=== PATIENT | female | born 1945 | race Caucasian/White ===

== ENCOUNTER 2016-10-12 16:47 | Inpatient (IN) | payer OTHER, BC ==
[~2016-10-12] VITALS: Ht 152.4 cm; Wt 148.0 kg
[~2016-10-12 16:47] MED LIST: ADULT LOW DOSE81 M1 PO; ATORVASTATIN CA10 MG PO; CARDURA2 M1 PO; DIOVAN160 MG PO; ELIQUIS5 MG PO; LO-DOSE ASPIRIN81 M1 PO; METOPROLOL SUC100 MG PO; METRONIDAZOLE500 MG PO; SANTYL30 GM TP; TOPROL XL50 MG PO; VALSARTAN320 MG PO; VOLTAREN75 MG PO; ZOLOFT100 MG PO
[2016-10-12] MEDS ORDERED: DIOVAN320 MG PO (17:10)
[2016-10-12] MEDS ORDERED: METOPROLOL SUC100 MG PO (17:11)
[2016-10-12] MEDS ORDERED: CHROMIUM PIC1000 MCG PO (17:13)
[2016-10-12 17:57] LABS: HEMATOCRIT 44.2 % (36.0-46.0); MCH 26.6 PG (29.0-34.0); MCHC 31.7 G/DL (30.0-36.0); MCV 83.9 FL (83-99); MEAN PLAT.VOLUME 9.9 uM^3 (9.5-12.4); NRBC (%) 0.5 /100 WBC (0-0); PLATELET COUNT 204 K/uL (156-360); RBC DIS.WIDTH-CV 14.9 % (11.8-14.6); RBC DIS.WIDTH-SD 45.4 % (39-53); RED BLOOD COUNT 5.27 M/uL (3.80-5.20); WHITE BLOOD COUNT 6.4 K/uL (4.1-10.2)
[2016-10-12 18:06] LABS: CHLORIDE 105 mEq/L (99-109); POTASSIUM 3.6 mEq/L (3.7-5.4); SODIUM 141 mEq/L (136-147)
[2016-10-12 18:08] LABS: GLUCOSE 100 mg/dL (70-99)
[2016-10-12 18:09] LABS: ANION GAP 12 MEQ/L (2-14)
[2016-10-12 18:11] LABS: GFR ESTIMATE (CALCULATED) 58 mL/min/; TOTAL BILIRUBIN 1.1 mg/dL (0.0-1.0)
[2016-10-12 18:12] LABS: ALKALINE PHOSPHATASE 129 IU/L (3-129); UREA NITROGEN (BUN) 15 mg/dL (9-23)
[2016-10-12 18:14] LABS: DIRECT BILIRUBIN 0.5 mg/dL (0.0-0.3)
[2016-10-12 18:15] LABS: LIPASE 30 U/L (1.0-51.0)
[2016-10-12 21:12] LABS: ADD MIUA? YES; BILIRUBIN NEGATIVE; BLOOD LARGE; COLOR YELLOW ((YELLOW)); GLUCOSE (STRIP) NEGATIVE; KETONES NEGATIVE; LEUKOCYTES SMALL; NITRITE NEGATIVE; PROTEIN (STRIP) 30; SPECIFIC GRAVITY 1.012 (1.000-1.030); UROBILINOGEN 0.2 MG/DL (0.2-1.0)
[2016-10-12 21:44] LABS: BACTERIA RARE /HPF; EPITHELIAL CELLS RARE /HPF; MUCUS TRACE /LPF; RED BLOOD CELLS TNTC /HPF (0-5); UCUL ADDED? NO; WHITE BLOOD CELLS 20-30 /HPF (0-5); WHITE BLOOD CELLS CLUMP OCC /HPF (0-5)
[2016-10-12 22:12] LABS: CRYSTALS PRESENT
[2016-10-13 03:39] VITALS: BP 95/51
[2016-10-13 07:26] LABS: ANION GAP 11 MEQ/L (2-14); CHLORIDE 105 MEQ/L (99-109); GFR ESTIMATE (CALCULATED) 47 mL/min/; GLUCOSE 114 mg/dL (70-99); HEMATOCRIT 36.3 % (36.0-46.0); MCH 26.5 PG (29.0-34.0); MCHC 31.1 G/DL (30.0-36.0); MCV 85.2 FL (83-99); MEAN PLAT.VOLUME 10.4 uM^3 (9.5-12.4); PLATELET COUNT 146 K/uL (156-360); POTASSIUM 3.4 MEQ/L (3.7-5.4); RBC DIS.WIDTH-CV 15.7 % (11.8-14.6); RBC DIS.WIDTH-SD 48.5 % (39-53); RED BLOOD COUNT 4.26 M/uL (3.80-5.20); SAMPLE HEMOLYSIS CHECK 0; SAMPLE ICTERIC CHECK 0; SAMPLE LIPEMIA CHECK 0; SODIUM 137 MEQ/L (136-147); UREA NITROGEN (BUN) 19 mg/dL (9-23)
[2016-10-13 07:40] LABS: WHITE BLOOD COUNT 33.9 K/uL (4.1-10.2)
[2016-10-13 07:56] LABS: ABS NEUTROPHIL COUNT 31.8; ATYPICAL LYMPHOCYTE 1.3 %; BAND NEUTROPHILS 23.5 % (0-8.0); BASOPHILS 0.5 %; EOSINOPHIL ABS CT 0; INSTRUMENT ABS NEUTROPHIL CT 30.2 K/uL; MYELOCYTES 0.4 %; PLAT.SUFFICIENCY ADEQUATE; SEG.NEUTROPHILS 70.4 % (46.0-76.0)
[2016-10-13 07:58] VITALS: BP 107/55
[2016-10-13 10:11] VITALS: BP 102/61
[2016-10-13 12:00] VITALS: BP 109/55
[2016-10-13 15:30] LABS: C DIFF TOXIN POSITIVE (NEGATIVE)
[2016-10-13 15:37] LABS: PROBE CHECK PASS
[2016-10-13 16:03] VITALS: BP 108/64
[2016-10-13 20:00] VITALS: BP 139/73
[2016-10-14] VITALS (7 sets, daily range): BP systolic 110–177; BP diastolic 68–73
[2016-10-14 07:28] LABS: HEMATOCRIT 35.2 % (36.0-46.0); MCHC 32.4 G/DL (30.0-36.0); MCV 83.2 FL (83-99); RBC DIS.WIDTH-CV 15.8 % (11.8-14.6); RED BLOOD COUNT 4.23 M/uL (3.80-5.20)
[2016-10-14 07:35] LABS: WHITE BLOOD COUNT 19.5 K/uL (4.1-10.2)
[2016-10-14 07:45] LABS: ANION GAP 10 MEQ/L (2-14); CHLORIDE 107 MEQ/L (99-109); GFR ESTIMATE (CALCULATED) 47 mL/min/; GLUCOSE 103 mg/dL (70-99); POTASSIUM 3.7 MEQ/L (3.7-5.4); SAMPLE HEMOLYSIS CHECK 0; SAMPLE ICTERIC CHECK 0; SAMPLE LIPEMIA CHECK 0; SODIUM 136 MEQ/L (136-147); UREA NITROGEN (BUN) 21 mg/dL (9-23)
[2016-10-14 09:38] LABS: EOSINOPHIL (%) 0.1 % (0-5); IMMATURE GRANULOCYTE (%) 2.8 % (0.0-0.7); IMMATURE GRANULOCYTE COUNT 0.5 K/uL; LYMPHOCYTE COUNT 0.3 K/uL (1.0-2.8); MEAN PLAT.VOLUME 10.1 uM^3 (9.5-12.4); MONOCYTE (%) 8.2 % (3-12); MONOCYTE COUNT 1.6 K/uL (0-0.8); NEUTROPHIL (%) 87.2 % (45-76); PLATELET COUNT 109 K/uL (156-360)
[2016-10-15 00:20] VITALS: BP 130/70
[2016-10-15 03:53] VITALS: BP 133/71
[2016-10-15 07:58] LABS: EOSINOPHIL (%) 0.3 % (0-5); HEMATOCRIT 35.4 % (36.0-46.0); IMMATURE GRANULOCYTE (%) 2.6 % (0.0-0.7); IMMATURE GRANULOCYTE COUNT 0.4 K/uL; INSTRUMENT ABS NEUTROPHIL CT 13.5 K/uL; LYMPHOCYTE COUNT 0.5 K/uL (1.0-2.8); MCH 26.6 PG (29.0-34.0); MCHC 31.4 G/DL (30.0-36.0); MCV 84.7 FL (83-99); MEAN PLAT.VOLUME 11.2 uM^3 (9.5-12.4); MONOCYTE COUNT 1.1 K/uL (0-0.8); NEUTROPHIL (%) 86.6 % (45-76); NEUTROPHIL COUNT 13.5 K/uL (1.8-6.4); PLATELET COUNT 84 K/uL (156-360); RBC DIS.WIDTH-CV 15.9 % (11.8-14.6); RBC DIS.WIDTH-SD 50.1 % (39-53); RED BLOOD COUNT 4.18 M/uL (3.80-5.20); WHITE BLOOD COUNT 15.5 K/uL (4.1-10.2)
[2016-10-15 08:31] LABS: ANION GAP 12 MEQ/L (2-14); CHLORIDE 111 MEQ/L (99-109); GFR ESTIMATE (CALCULATED) 47 mL/min/; GLUCOSE 110 mg/dL (70-99); POTASSIUM 4.2 MEQ/L (3.7-5.4); SAMPLE HEMOLYSIS CHECK 0; SAMPLE ICTERIC CHECK 0; SAMPLE LIPEMIA CHECK 0; SODIUM 140 MEQ/L (136-147); UREA NITROGEN (BUN) 20 mg/dL (9-23)
[2016-10-15 09:07] VITALS: BP 139/88
[2016-10-15 11:30] VITALS: BP 142/84
[2016-10-15 15:55] VITALS: BP 140/74
[2016-10-15 20:00] VITALS: BP 180/84
[2016-10-16] VITALS: BP 158/82
[2016-10-16 04:00] VITALS: BP 142/78
[2016-10-16 07:42] LABS: BASOPHIL COUNT 0.1 K/uL (0-0.1); EOSINOPHIL (%) 0.6 % (0-5); EOSINOPHIL COUNT 0.1 K/uL (0-0.3); HEMATOCRIT 33.2 % (36.0-46.0); IMMATURE GRANULOCYTE (%) 1.7 % (0.0-0.7); IMMATURE GRANULOCYTE COUNT 0.3 K/uL; INSTRUMENT ABS NEUTROPHIL CT 12.6 K/uL; LYMPHOCYTE COUNT 0.7 K/uL (1.0-2.8); MCH 26.9 PG (29.0-34.0); MCHC 33.4 G/DL (30.0-36.0); MEAN PLAT.VOLUME 10.6 uM^3 (9.5-12.4); MONOCYTE COUNT 1.9 K/uL (0-0.8); NEUTROPHIL (%) 80.7 % (45-76); NEUTROPHIL COUNT 12.6 K/uL (1.8-6.4); RBC DIS.WIDTH-CV 15.5 % (11.8-14.6); RED BLOOD COUNT 4.12 M/uL (3.80-5.20); WHITE BLOOD COUNT 15.6 K/uL (4.1-10.2)
[2016-10-16 07:43] LABS: MCV 80.6 FL (83-99); PLATELET COUNT 129 K/uL (156-360)
[2016-10-16 07:58] LABS: ANION GAP 10 MEQ/L (2-14); CHLORIDE 102 MEQ/L (99-109); GFR ESTIMATE (CALCULATED) > 59 mL/min/; GLUCOSE 116 mg/dL (70-99); SAMPLE HEMOLYSIS CHECK 0; SAMPLE ICTERIC CHECK 0; SAMPLE LIPEMIA CHECK 0; SODIUM 137 MEQ/L (136-147); UREA NITROGEN (BUN) 12 mg/dL (9-23)
[2016-10-16 08:12] VITALS: BP 163/79
[2016-10-16 11:03] VITALS: BP 162/78
[2016-10-16 15:53] VITALS: BP 166/80
[2016-10-16 19:57] VITALS: BP 146/70
[2016-10-17] VITALS: BP 134/76
[2016-10-17 03:45] VITALS: BP 155/72
[2016-10-17 07:31] VITALS: BP 146/72
[2016-10-17 07:35] LABS: BASOPHIL COUNT 0.1 K/uL (0-0.1); EOSINOPHIL (%) 1.2 % (0-5); EOSINOPHIL COUNT 0.2 K/uL (0-0.3); HEMATOCRIT 34.2 % (36.0-46.0); IMMATURE GRANULOCYTE (%) 4.9 % (0.0-0.7); IMMATURE GRANULOCYTE COUNT 0.7 K/uL; INSTRUMENT ABS NEUTROPHIL CT 10.5 K/uL; MCH 26.1 PG (29.0-34.0); MCHC 32.2 G/DL (30.0-36.0); MEAN PLAT.VOLUME 10.8 uM^3 (9.5-12.4); MONOCYTE (%) 14.2 % (3-12); MONOCYTE COUNT 2.1 K/uL (0-0.8); NEUTROPHIL COUNT 10.5 K/uL (1.8-6.4); PLATELET COUNT 156 K/uL (156-360); RBC DIS.WIDTH-CV 15.6 % (11.8-14.6); RBC DIS.WIDTH-SD 45.8 % (39-53); RED BLOOD COUNT 4.22 M/uL (3.80-5.20); WHITE BLOOD COUNT 14.6 K/uL (4.1-10.2)
[2016-10-17 07:57] LABS: ANION GAP 9 MEQ/L (2-14); CHLORIDE 101 MEQ/L (99-109); GFR ESTIMATE (CALCULATED) > 59 mL/min/; GLUCOSE 111 mg/dL (70-99); POTASSIUM 2.8 MEQ/L (3.7-5.4); SAMPLE HEMOLYSIS CHECK 0; SAMPLE ICTERIC CHECK 0; SAMPLE LIPEMIA CHECK 0; SODIUM 140 MEQ/L (136-147); UREA NITROGEN (BUN) 10 mg/dL (9-23)
[2016-10-17 10:57] LABS: INFLUENZA A VIRAL ANTIGEN NEGATIVE; INFLUENZA B VIRAL ANTIGEN NEGATIVE
[2016-10-17 11:45] VITALS: BP 138/70
[2016-10-17 16:01] VITALS: BP 128/64
[2016-10-17 19:51] VITALS: BP 127/72
[2016-10-18] VITALS (7 sets, daily range): BP systolic 123–145; BP diastolic 65–78
[2016-10-18 07:16] LABS: HEMATOCRIT 34.4 % (36.0-46.0); MCH 26.2 PG (29.0-34.0); MCV 81.9 FL (83-99); PLATELET COUNT 179 K/uL (156-360); RBC DIS.WIDTH-CV 15.8 % (11.8-14.6); WHITE BLOOD COUNT 15.2 K/uL (4.1-10.2)
[2016-10-18 07:38] LABS: ANION GAP 9 MEQ/L (2-14); CHLORIDE 100 MEQ/L (99-109); GFR ESTIMATE (CALCULATED) > 59 mL/min/; GLUCOSE 120 mg/dL (70-99); SAMPLE HEMOLYSIS CHECK 0; SAMPLE ICTERIC CHECK 0; SAMPLE LIPEMIA CHECK 0; SODIUM 140 MEQ/L (136-147); UREA NITROGEN (BUN) 12 mg/dL (9-23)
[2016-10-18 08:44] LABS: ABS NEUTROPHIL COUNT 12.1; ATYPICAL LYMPHOCYTE 0.9 %; BASOPHILS 0.9 %; EOSINOPHIL ABS CT 0.4; EOSINOPHILS 2.6 % (0-5.0); INSTRUMENT ABS NEUTROPHIL CT 10.3 K/uL; LYMPHOCYTES 6.1 % (15.0-45.0); PLAT.SUFFICIENCY ADEQUATE; SEG.NEUTROPHILS 79.8 % (46.0-76.0); SMUDGE CELLS 1.8
[2016-10-19 03:33] VITALS: BP 140/75
[2016-10-19 07:07] LABS: HEMATOCRIT 35.1 % (36.0-46.0); MCH 26.6 PG (29.0-34.0); MCHC 32.5 G/DL (30.0-36.0); MEAN PLAT.VOLUME 10.9 uM^3 (9.5-12.4); PLATELET COUNT 218 K/uL (156-360); RBC DIS.WIDTH-CV 15.8 % (11.8-14.6); RBC DIS.WIDTH-SD 47.3 % (39-53); RED BLOOD COUNT 4.28 M/uL (3.80-5.20); WHITE BLOOD COUNT 13.6 K/uL (4.1-10.2)
[2016-10-19 07:27] LABS: ANION GAP 6 MEQ/L (2-14); CHLORIDE 102 MEQ/L (99-109); GFR ESTIMATE (CALCULATED) > 59 mL/min/; GLUCOSE 127 mg/dL (70-99); POTASSIUM 3.2 MEQ/L (3.7-5.4); SAMPLE HEMOLYSIS CHECK 0; SAMPLE ICTERIC CHECK 0; SAMPLE LIPEMIA CHECK 0; SODIUM 138 MEQ/L (136-147); UREA NITROGEN (BUN) 14 mg/dL (9-23)
[2016-10-19 07:51] VITALS: BP 141/74
[2016-10-19 07:51] LABS: ABS NEUTROPHIL COUNT 10.9; BASOPHILS 0.9 %; EOSINOPHIL ABS CT 0.1; EOSINOPHILS 0.9 % (0-5.0); INSTRUMENT ABS NEUTROPHIL CT 8.8 K/uL; LYMPHOCYTES 6.9 % (15.0-45.0); METAMYELOCYTES 1.7 %; NUCLEATED RBC'S 0.9; PLAT.SUFFICIENCY ADEQUATE; SEG.NEUTROPHILS 76.5 % (46.0-76.0)
[2016-10-19 08:53] LABS: BAND NEUTROPHILS 3.5 % (0-8.0)
[2016-10-19] MEDS ORDERED: ELIQUIS5 MG PO ×2 (11:54→11:55)
[2016-10-19 12:21] VITALS: BP 144/78
[2016-10-19 15:40] VITALS: BP 146/76
[2016-10-19 19:41] VITALS: BP 163/72
[2016-10-20] VITALS: BP 154/73
[2016-10-20 06:52] LABS: HEMATOCRIT 35.7 % (36.0-46.0); MCH 26.5 PG (29.0-34.0); MCHC 31.9 G/DL (30.0-36.0); MCV 82.8 FL (83-99); MEAN PLAT.VOLUME 10.7 uM^3 (9.5-12.4); PLATELET COUNT 244 K/uL (156-360); RBC DIS.WIDTH-CV 15.6 % (11.8-14.6); RBC DIS.WIDTH-SD 47.5 % (39-53); RED BLOOD COUNT 4.31 M/uL (3.80-5.20)
[2016-10-20 07:13] LABS: ANION GAP 9 MEQ/L (2-14); CHLORIDE 102 MEQ/L (99-109); GFR ESTIMATE (CALCULATED) > 59 mL/min/; GLUCOSE 106 mg/dL (70-99); POTASSIUM 3.5 MEQ/L (3.7-5.4); SAMPLE HEMOLYSIS CHECK 0; SAMPLE ICTERIC CHECK 0; SAMPLE LIPEMIA CHECK 0; SODIUM 142 MEQ/L (136-147); UREA NITROGEN (BUN) 15 mg/dL (9-23)
[2016-10-20 07:48] VITALS: BP 140/64
[2016-10-20 08:52] LABS: ABS NEUTROPHIL COUNT 11.1; ATYPICAL LYMPHOCYTE 0.9 %; BAND NEUTROPHILS 2.7 % (0-8.0); BASOPHILS 2.7 %; EOSINOPHIL ABS CT 0.1; EOSINOPHILS 0.9 % (0-5.0); INSTRUMENT ABS NEUTROPHIL CT 9.8 K/uL; LYMPHOCYTES 7.1 % (15.0-45.0); MYELOCYTES 3.6 %; PLAT.SUFFICIENCY ADEQUATE; SEG.NEUTROPHILS 76.8 % (46.0-76.0)
[2016-10-20 11:34] VITALS: BP 140/80
[2016-10-20 16:08] VITALS: BP 140/72
[2016-10-20 20:00] VITALS: BP 135/76
[2016-10-20 23:56] VITALS: BP 151/83
[2016-10-21 04:00] VITALS: BP 148/83
[2016-10-21 06:23] LABS: HEMATOCRIT 36.7 % (36.0-46.0); MCH 26.4 PG (29.0-34.0); MCHC 31.9 G/DL (30.0-36.0); MCV 82.8 FL (83-99); MEAN PLAT.VOLUME 10.9 uM^3 (9.5-12.4); PLATELET COUNT 271 K/uL (156-360); RBC DIS.WIDTH-CV 15.8 % (11.8-14.6); RBC DIS.WIDTH-SD 47.9 % (39-53); RED BLOOD COUNT 4.43 M/uL (3.80-5.20); WHITE BLOOD COUNT 15.5 K/uL (4.1-10.2)
[2016-10-21 06:47] LABS: ANION GAP 10 MEQ/L (2-14); CHLORIDE 102 MEQ/L (99-109); GFR ESTIMATE (CALCULATED) > 59 mL/min/; GLUCOSE 95 mg/dL (70-99); POTASSIUM 3.9 MEQ/L (3.7-5.4); SAMPLE HEMOLYSIS CHECK 0; SAMPLE ICTERIC CHECK 0; SAMPLE LIPEMIA CHECK 0; SODIUM 140 MEQ/L (136-147); UREA NITROGEN (BUN) 14 mg/dL (9-23)
[2016-10-21 07:32] LABS: ABS NEUTROPHIL COUNT 12.2; ANISOCYTOSIS 1+; ATYPICAL LYMPHOCYTE 3.4 %; BAND NEUTROPHILS 2.6 % (0-8.0); BASOPHILS 0.8 %; EOSINOPHIL ABS CT 0; INSTRUMENT ABS NEUTROPHIL CT 11.4 K/uL; LYMPHOCYTES 6.8 % (15.0-45.0); MYELOCYTES 2.6 %; PLAT.SUFFICIENCY ADEQUATE; SEG.NEUTROPHILS 76.1 % (46.0-76.0); SPHEROCYTES 1+
[2016-10-21 07:35] VITALS: BP 144/81
[2016-10-21] MEDS ORDERED: AMOXICILLIN500 MG PO (13:45)
[2016-10-21] MEDS ORDERED: GUAIFENESI100 MG/5 M PO (13:46)
[2016-10-21] MEDS ORDERED: PREDNISONE20 MG PO (13:47)
[2016-10-21] MEDS ORDERED: VANCOMYCIN HCL125 MG PO (13:50)
== END 2016-10-21 15:50 | disposition home health service (06) | DRG 871 ==
LOC: EME 16:47 → 5SOUTH 10-13 00:29 → EDOF 10-13 00:29 → 5SOUTH 10-13 02:28
PROVIDERS: Emergency Medicine; Family Medicine; Internal Medicine
DX: A41.9 Sepsis, unspecified organism (principal); J18.9 Pneumonia, unspecified organism; E87.2 Acidosis; Z68.44 Body mass index [BMI] 60.0-69.9, adult; A04.7 Enterocolitis due to Clostridium difficile; N30.00 Acute cystitis without hematuria; N20.1 Calculus of ureter; L97.229 Non-pressure chronic ulcer of left calf with unspecified severity; E87.6 Hypokalemia; I10 Essential (primary) hypertension; E78.5 Hyperlipidemia, unspecified; F41.9 Anxiety disorder, unspecified; F32.9 Major depressive disorder, single episode, unspecified; E66.01 Morbid (severe) obesity due to excess calories; I27.2 Other secondary pulmonary hypertension; I83.022 Varicose veins of left lower extremity with ulcer of calf; B96.4 Proteus (mirabilis) (morganii) as the cause of diseases classified elsewhere; E87.70 Fluid overload, unspecified
CPT/HCPCS: 70450; 71010; 71250; 74176; 80048; 80076; 81003; 83605; 83690; 85025; 85027; 87040; 87077; 87086; 87186; 87493; 87502; 87801; 93306; 94799; 99281; 99285; A6212; J0456; J0696; J1885; J1940; J2060; J2270; J2405; J3480; J7030; J7050; J7512; S0030

== ENCOUNTER 2017-01-06 04:47 | Inpatient (IN) | payer OTHER, BC ==
[~2017-01-06] VITALS: Ht 152.4 cm; Wt 151.4 kg
[~2017-01-06 04:47] MED LIST changes: +AMOXICILLIN500 MG PO; +CHROMIUM PIC1000 MCG PO; +DIOVAN320 MG PO; +GUAIFENESI100 MG/5 M PO; +PREDNISONE20 MG PO; +VANCOMYCIN HCL125 MG PO
[2017-01-06 05:38] LABS: BASOPHIL COUNT 0.1 K/uL (0-0.1); EOSINOPHIL (%) 0.2 % (0-5); HEMATOCRIT 38.8 % (36.0-46.0); IMMATURE GRANULOCYTE (%) 0.4 % (0.0-0.7); IMMATURE GRANULOCYTE COUNT 0.1 K/uL; INSTRUMENT ABS NEUTROPHIL CT 11.2 K/uL; MCH 27.1 PG (29.0-34.0); MCHC 32.7 G/DL (30.0-36.0); MCV 82.7 FL (83-99); MEAN PLAT.VOLUME 10.2 uM^3 (9.5-12.4); MONOCYTE (%) 10.3 % (3-12); MONOCYTE COUNT 1.4 K/uL (0-0.8); NEUTROPHIL (%) 81.4 % (45-76); NEUTROPHIL COUNT 11.2 K/uL (1.8-6.4); PLATELET COUNT 206 K/uL (156-360); RBC DIS.WIDTH-CV 14.6 % (11.8-14.6); RBC DIS.WIDTH-SD 43.8 % (39-53); RED BLOOD COUNT 4.69 M/uL (3.80-5.20); WHITE BLOOD COUNT 13.7 K/uL (4.1-10.2)
[2017-01-06 05:46] LABS: CHLORIDE 104 mEq/L (99-109); POTASSIUM 3.9 mEq/L (3.7-5.4); SODIUM 137 mEq/L (136-147)
[2017-01-06 05:47] LABS: GLUCOSE 125 mg/dL (70-99)
[2017-01-06 05:49] LABS: ANION GAP 10 MEQ/L (2-14)
[2017-01-06 05:51] LABS: GFR ESTIMATE (CALCULATED) > 59 mL/min/
[2017-01-06 05:52] LABS: UREA NITROGEN (BUN) 11 mg/dL (9-23)
[2017-01-06 06:01] LABS: TROP-I INTERPRETATION NEGATIVE; TROPONIN-I < 0.01 ng/mL (0.0-0.30)
[2017-01-06 06:52] LABS: D-DIMER ELISA 1.35 mg/L FEU (< 0.57)
[2017-01-06] MEDS ORDERED: MONTELUKAST SOD10 MG PO (08:42)
[2017-01-06 11:50] VITALS: BP 135/63
[2017-01-06 11:53] VITALS: BP 135/63
[2017-01-06 12:42] LABS: TROP-I INTERPRETATION NEGATIVE; TROPONIN-I < 0.01 ng/mL (0.0-0.30)
[2017-01-06 15:38] VITALS: BP 126/63
[2017-01-06 18:04] LABS: TROP-I INTERPRETATION NEGATIVE; TROPONIN-I 0.01 ng/mL (0.0-0.30)
[2017-01-06 20:24] VITALS: BP 123/56
[2017-01-07] VITALS (7 sets, daily range): BP systolic 138–177; BP diastolic 62–75
[2017-01-07 07:09] LABS: MCH 27.4 PG (29.0-34.0); MCHC 32.2 G/DL (30.0-36.0); MCV 85.1 FL (83-99); MEAN PLAT.VOLUME 10.5 uM^3 (9.5-12.4); PLATELET COUNT 178 K/uL (156-360); RBC DIS.WIDTH-CV 14.5 % (11.8-14.6); RBC DIS.WIDTH-SD 45.1 % (39-53); RED BLOOD COUNT 4.35 M/uL (3.80-5.20); WHITE BLOOD COUNT 8.2 K/uL (4.1-10.2)
[2017-01-07 07:33] LABS: ANION GAP 8 MEQ/L (2-14); CHLORIDE 106 MEQ/L (99-109); GFR ESTIMATE (CALCULATED) > 59 mL/min/; GLUCOSE 107 mg/dL (70-99); POTASSIUM 3.8 MEQ/L (3.7-5.4); SAMPLE HEMOLYSIS CHECK 0; SAMPLE ICTERIC CHECK 0; SAMPLE LIPEMIA CHECK 0; SODIUM 140 MEQ/L (136-147); UREA NITROGEN (BUN) 10 mg/dL (9-23)
[2017-01-07 07:38] LABS: INTER. NORMALIZED RATIO 1.1; PROTHROMBIN TIME 11.4 (9.2-11.2)
[2017-01-08 00:05] VITALS: BP 148/65
[2017-01-08 03:30] VITALS: BP 141/70
[2017-01-08 09:41] VITALS: BP 139/94
[2017-01-08 11:30] VITALS: BP 162/91
[2017-01-08 15:51] VITALS: BP 164/79
[2017-01-08 20:43] VITALS: BP 139/69
[2017-01-09] VITALS (7 sets, daily range): BP systolic 144–184; BP diastolic 65–97
[2017-01-10 00:01] VITALS: BP 158/74
[2017-01-10 07:41] VITALS: BP 166/78
[2017-01-10 09:01] LABS: HEMATOCRIT 40.7 % (36.0-46.0); MCH 26.7 PG (29.0-34.0); MCHC 31.9 G/DL (30.0-36.0); MCV 83.7 FL (83-99); MEAN PLAT.VOLUME 9.9 uM^3 (9.5-12.4); RBC DIS.WIDTH-CV 13.9 % (11.8-14.6); RBC DIS.WIDTH-SD 42.6 % (39-53); RED BLOOD COUNT 4.86 M/uL (3.80-5.20); WHITE BLOOD COUNT 7.8 K/uL (4.1-10.2)
[2017-01-10 09:12] LABS: ANION GAP 8 MEQ/L (2-14); CHLORIDE 103 MEQ/L (99-109); GFR ESTIMATE (CALCULATED) > 59 mL/min/; GLUCOSE 118 mg/dL (70-99); POTASSIUM 4.1 MEQ/L (3.7-5.4); SAMPLE HEMOLYSIS CHECK 0; SAMPLE ICTERIC CHECK 0; SAMPLE LIPEMIA CHECK 0; SODIUM 141 MEQ/L (136-147); UREA NITROGEN (BUN) 12 mg/dL (9-23)
[2017-01-10 11:38] LABS: PLATELET COUNT 232 K/uL (156-360)
[2017-01-10 13:38] VITALS: BP 173/71
[2017-01-10 16:11] VITALS: BP 140/63
[2017-01-10 20:00] VITALS: BP 154/65
[2017-01-10 20:55] LABS: C DIFF TOXIN NEGATIVE (NEGATIVE); PROBE CHECK PASS; SPECIMEN PROCESSING CONTROL PASS
[2017-01-10 23:45] VITALS: BP 166/79
[2017-01-11] VITALS (7 sets, daily range): BP systolic 104–183; BP diastolic 53–83
[2017-01-12 04:02] VITALS: BP 121/58
[2017-01-12 08:32] VITALS: BP 139/64
[2017-01-12 12:00] VITALS: BP 121/67
[2017-01-12 15:58] VITALS: BP 126/58
[2017-01-12] MEDS ORDERED: AUGMENTIN875 MG PO (16:51)
[2017-01-12] MEDS ORDERED: ACIDOPHILUS LA1 EACH PO (16:51)
[2017-01-12 23:53] VITALS: BP 119/56
[2017-01-13 07:53] VITALS: BP 144/52
[2017-01-13] MEDS ORDERED: PROCARDIA20 MG PO (08:41)
== END 2017-01-13 09:34 | disposition home or self-care (01) | DRG 871 ==
LOC: EME → EDBD 04:47 → 3EAST 09:04 → EDOF 09:04 → 3EAST 11:19
PROVIDERS: Emergency Medicine; Internal Medicine; Physician Assistant
DX: A40.9 Streptococcal sepsis, unspecified (principal); J18.9 Pneumonia, unspecified organism; I11.0 Hypertensive heart disease with heart failure; I50.30 Unspecified diastolic (congestive) heart failure; L03.116 Cellulitis of left lower limb; E78.5 Hyperlipidemia, unspecified; F32.9 Major depressive disorder, single episode, unspecified; I51.7 Cardiomegaly; I87.2 Venous insufficiency (chronic) (peripheral); Z68.44 Body mass index [BMI] 60.0-69.9, adult; Z79.01 Long term (current) use of anticoagulants; Z79.899 Other long term (current) drug therapy; Z82.49 Family history of ischemic heart disease and other diseases of the circulatory system; Z85.3 Personal history of malignant neoplasm of breast; Z86.711 Personal history of pulmonary embolism; Z86.718 Personal history of other venous thrombosis and embolism; Z88.2 Allergy status to sulfonamides; I89.0 Lymphedema, not elsewhere classified; E66.2 Morbid (severe) obesity with alveolar hypoventilation; E66.01 Morbid (severe) obesity due to excess calories
CPT/HCPCS: 71010; 71275; 80048; 83605; 83880; 84484; 85025; 85027; 85379; 85610; 85651; 87040; 87070; 87205; 87493; 87801; 93005; 93971; 94760; 94799; 97530 GO; 97530 GP; 99202; 99281; 99285; C1753; J0690; J1956; J2540; J7030; J7050

== ENCOUNTER 2017-03-20 07:12 | Emergency (ER) | payer OTHER, BC ==
[~2017-03-20] VITALS: Ht 152.4 cm; Wt 148.0 kg
[~2017-03-20 07:12] MED LIST changes: +ACIDOPHILUS LA1 EACH PO; +AUGMENTIN875 MG PO; +MONTELUKAST SOD10 MG PO; +PROCARDIA20 MG PO
[2017-03-20 08:02] LABS: BASOPHIL COUNT 0.1 K/uL (0-0.1); EOSINOPHIL (%) 1.5 % (0-5); EOSINOPHIL COUNT 0.2 K/uL (0-0.3); HEMATOCRIT 39.3 % (36.0-46.0); IMMATURE GRANULOCYTE (%) 0.5 % (0.0-0.7); IMMATURE GRANULOCYTE COUNT 0.1 K/uL; INSTRUMENT ABS NEUTROPHIL CT 7.4 K/uL; LYMPHOCYTE COUNT 1.3 K/uL (1.0-2.8); MCHC 31.8 G/DL (30.0-36.0); MCV 81.7 FL (83-99); MEAN PLAT.VOLUME 10.1 uM^3 (9.5-12.4); MONOCYTE (%) 13.7 % (3-12); MONOCYTE COUNT 1.4 K/uL (0-0.8); NEUTROPHIL (%) 71.3 % (45-76); NEUTROPHIL COUNT 7.4 K/uL (1.8-6.4); PLATELET COUNT 224 K/uL (156-360); RBC DIS.WIDTH-CV 14.9 % (11.8-14.6); RBC DIS.WIDTH-SD 45.1 % (39-53); RED BLOOD COUNT 4.81 M/uL (3.80-5.20); WHITE BLOOD COUNT 10.4 K/uL (4.1-10.2)
[2017-03-20 08:13] LABS: CHLORIDE 107 mEq/L (99-109); POTASSIUM 3.7 mEq/L (3.7-5.4); SODIUM 142 mEq/L (136-147)
[2017-03-20 08:15] LABS: GLUCOSE 116 mg/dL (70-99)
[2017-03-20 08:16] LABS: ANION GAP 12 MEQ/L (2-14)
[2017-03-20 08:19] LABS: GFR ESTIMATE (CALCULATED) > 59 mL/min/
[2017-03-20 08:20] LABS: UREA NITROGEN (BUN) 17 mg/dL (9-23)
[2017-03-20] MEDS ORDERED: CLEOCIN300 MG PO (10:17)
[2017-03-20 11:10] VITALS: BP 162/90
== END 2017-03-20 11:11 | disposition home or self-care (01) ==
LOC: EME 07:12
PROVIDERS: Emergency Medicine
DX: L03.116 Cellulitis of left lower limb (principal); I89.0 Lymphedema, not elsewhere classified; I10 Essential (primary) hypertension; E78.5 Hyperlipidemia, unspecified; Z85.3 Personal history of malignant neoplasm of breast
CPT/HCPCS: 80048; 85025; 99281; 99285; J0696; J7050

== ENCOUNTER 2017-06-01 09:27 | Inpatient (IN) | payer OTHER, BC ==
[~2017-06-01] VITALS: Ht 152.4 cm; Wt 151.2 kg
[~2017-06-01 09:27] MED LIST changes: +CLEOCIN300 MG PO
[2017-06-01 14:22] LABS: BASOPHIL COUNT 0.1 K/uL (0-0.1); EOSINOPHIL (%) 0.6 % (0-5); EOSINOPHIL COUNT 0.1 K/uL (0-0.3); HEMATOCRIT 35.5 % (36.0-46.0); IMMATURE GRANULOCYTE (%) 0.8 % (0.0-0.7); IMMATURE GRANULOCYTE COUNT 0.1 K/uL; INSTRUMENT ABS NEUTROPHIL CT 9.6 K/uL; LYMPHOCYTE COUNT 0.9 K/uL (1.0-2.8); MCHC 31.5 G/DL (30.0-36.0); MCV 82.6 FL (83-99); MEAN PLAT.VOLUME 9.8 uM^3 (9.5-12.4); MONOCYTE (%) 12.4 % (3-12); MONOCYTE COUNT 1.5 K/uL (0-0.8); NEUTROPHIL (%) 78.4 % (45-76); NEUTROPHIL COUNT 9.6 K/uL (1.8-6.4); PLATELET COUNT 250 K/uL (156-360); RBC DIS.WIDTH-CV 15.3 % (11.8-14.6); RBC DIS.WIDTH-SD 46.2 % (39-53); WHITE BLOOD COUNT 12.3 K/uL (4.1-10.2)
[2017-06-01 14:31] LABS: CHLORIDE 109 mEq/L (99-109); POTASSIUM 3.9 mEq/L (3.7-5.4); SODIUM 141 mEq/L (136-147)
[2017-06-01 14:33] LABS: GLUCOSE 127 mg/dL (70-99)
[2017-06-01 14:34] LABS: ANION GAP 8 MEQ/L (2-14)
[2017-06-01 14:37] LABS: GFR ESTIMATE (CALCULATED) > 59 mL/min/
[2017-06-01 14:38] LABS: UREA NITROGEN (BUN) 11 mg/dL (9-23)
[2017-06-01] MEDS ORDERED: PROCARDIA XL30 MG PO (14:57)
[2017-06-01] MEDS ORDERED: PROBIOTIC1 EAC1 PO (14:58)
[2017-06-01] MEDS ORDERED: DAILY VALUE1 EACH PO (14:59)
[2017-06-01 18:08] VITALS: BP 142/61
[2017-06-01 20:54] VITALS: BP 133/60
[2017-06-02] VITALS: BP 128/60
[2017-06-02 05:37] VITALS: BP 138/63
[2017-06-02 06:03] LABS: BASOPHIL COUNT 0.1 K/uL (0-0.1); EOSINOPHIL (%) 0.8 % (0-5); EOSINOPHIL COUNT 0.1 K/uL (0-0.3); HEMATOCRIT 31.9 % (36.0-46.0); IMMATURE GRANULOCYTE (%) 0.4 % (0.0-0.7); INSTRUMENT ABS NEUTROPHIL CT 7.7 K/uL; MCH 26.4 PG (29.0-34.0); MCV 82.4 FL (83-99); MONOCYTE (%) 12.8 % (3-12); MONOCYTE COUNT 1.3 K/uL (0-0.8); NEUTROPHIL (%) 75.5 % (45-76); NEUTROPHIL COUNT 7.7 K/uL (1.8-6.4); PLATELET COUNT 239 K/uL (156-360); RBC DIS.WIDTH-CV 15.3 % (11.8-14.6); RBC DIS.WIDTH-SD 46.1 % (39-53); RED BLOOD COUNT 3.87 M/uL (3.80-5.20); WHITE BLOOD COUNT 10.3 K/uL (4.1-10.2)
[2017-06-02 06:25] LABS: ANION GAP 10 MEQ/L (2-14); CHLORIDE 104 MEQ/L (99-109); GFR ESTIMATE (CALCULATED) > 59 mL/min/; GLUCOSE 106 mg/dL (70-99); POTASSIUM 3.6 MEQ/L (3.7-5.4); SAMPLE HEMOLYSIS CHECK 0; SAMPLE ICTERIC CHECK 0; SAMPLE LIPEMIA CHECK 0; SODIUM 139 MEQ/L (136-147); UREA NITROGEN (BUN) 10 mg/dL (9-23)
[2017-06-02 07:47] VITALS: BP 134/61
[2017-06-02 11:45] VITALS: BP 107/59
[2017-06-02 15:51] VITALS: BP 129/68
[2017-06-02 23:40] VITALS: BP 145/65
[2017-06-03 08:25] VITALS: BP 126/61
[2017-06-03 16:01] VITALS: BP 120/61
[2017-06-04 07:40] VITALS: BP 126/62
[2017-06-04] MEDS ORDERED: PRAVASTATIN SOD40 MG PO (13:32)
[2017-06-04] MEDS ORDERED: FLORASTOR250 MG PO (13:32)
[2017-06-04] MEDS ORDERED: Salonpas 4% Patch TD (13:34)
[2017-06-04] MEDS ORDERED: PERCOCET 5/31 TABLET PO (13:34)
[2017-06-04] MEDS ORDERED: IBUPROFEN600 MG PO (13:49)
[2017-06-04] MEDS ORDERED: KEFLEX500 MG PO (13:49)
== END 2017-06-04 16:28 | DRG 563 ==
LOC: EME 09:27 → 3EAST 14:43 → EDOF 14:43 → ENRESERV 14:52 → 3EAST 16:58
PROVIDERS: Emergency Medicine; Internal Medicine
PROC: 0HDNXZZ Extraction of Left Foot Skin, External Approach (ICD-10-PCS; principal; 2017-06-02)
DX: S83.521A Sprain of posterior cruciate ligament of right knee, initial encounter (principal); L03.116 Cellulitis of left lower limb; S80.01XA Contusion of right knee, initial encounter; E66.01 Morbid (severe) obesity due to excess calories; I10 Essential (primary) hypertension; S83.511A Sprain of anterior cruciate ligament of right knee, initial encounter; Z79.01 Long term (current) use of anticoagulants; Z86.711 Personal history of pulmonary embolism; E78.5 Hyperlipidemia, unspecified; F32.9 Major depressive disorder, single episode, unspecified; M17.11 Unilateral primary osteoarthritis, right knee; W01.0XXA Fall on same level from slipping, tripping and stumbling without subsequent striking against object, initial encounter; Y92.009 Unspecified place in unspecified non-institutional (private) residence as the place of occurrence of the external cause; I27.20 Pulmonary hypertension, unspecified; Z68.44 Body mass index [BMI] 60.0-69.9, adult; L97.909 Non-pressure chronic ulcer of unspecified part of unspecified lower leg with unspecified severity; I83.209 Varicose veins of unspecified lower extremity with both ulcer of unspecified site and inflammation; I89.0 Lymphedema, not elsewhere classified; S91.302A Unspecified open wound, left foot, initial encounter
CPT/HCPCS: 71010; 73560; 73721; 80048; 83605; 85025; 90686; 94799; 97530 GO; 97530 GP; 99281; 99285; G8978 GP CM; G8979 GP CK; G8987 GO CM; G8988 GO CK; J0690; J0696; J1885; J2060; J2270